=== PATIENT | male | born 1940 | race Caucasian/White ===

== ENCOUNTER 2019-07-04 14:24 | Outpatient (CLI) | payer OTHER, SELFPAY ==
--- NOTE | 2019-07-04 14:30 | USCV_ITS ---
Sanju Ball Age: 79 Gender: M : 1940 Exam Date: 07/04/2019 14:40 Ordering Phys: Art Mullen DO Technologist: Itzel Sahu Exam Location: [facility] – [place] Indication: BRUIT Risk Factors: Previous Vascular Surgery: Right Brachial BP: / Left Brachial BP: / Right Left Velocity (cm/s) Spectral Plaque Velocity (cm/s) Spectral Plaque Syst/Diast Broadening Syst/Diast Broadening 62.80/ 9.90 Prox CCA 47.00 / 5.80 52.80/ 8.50 Mid CCA 42.10 / 13.70 57.50/ 10.10 Distal CCA 38.70 / 7.10 29.60/ 10.40 Prox ICA 31.60 / 8.80 50.50/ 16.80 Mid ICA 35.10 / 12.90 60.90/ 21.50 Distal ICA 42.90 / 11.60 65.00 ECA 65.20 1.15 ICA/CCA 1.02 Antegrade Vertebral Antegrade 37.10/ 8.70 cm/s 43.10/ 8.40 cm/s Tri Subclavian Tri 41.20 50.10 FINDINGS Minimal atheroscleriotic change right internal carotid aretery. CONCLUSIONS Negative bilateral carotid arterial stenosis or occlusion. Dr. Oenyda Oliva MD (Electronically Signed) Final Date: 04 July 2019 15:35 S
== END 2019-07-04 14:25 | disposition home or self-care (01) ==
LOC: RAD 14:28
PROVIDERS: Family Provider Internal Medicine; PCP Emergency Medicine Emergency Medical Services; Visit Provider Emergency Medicine Emergency Medical Services
DX: R09.89 Other specified symptoms and signs involving the circulatory and respiratory systems (principal)
CPT/HCPCS: 93880

== ENCOUNTER 2019-12-21 07:28 | Outpatient (CLI) | payer OTHER, SELFPAY ==
--- NOTE | 2019-12-21 07:37 | XRR_ITS ---
PROCEDURE INFORMATION: Exam: XR Abdomen, 1 View Exam date and time: 12/21/2019 7:57 AM Age: 79 years old Clinical indication: Condition or disease; Kidney or ureter condition; Calculus (stone) in kidney; Patient HX: Follow up kidney stone TECHNIQUE: Imaging protocol: XR of the abdomen. Views: Frontal supine view of the abdomen. 1 View. COMPARISON: CR XR KUB [id number] 11/12/2018 7:37 AM FINDINGS: Gastrointestinal tract: bowel gas pattern is nonspecific. Air filled large bowel including distal rectal gas. Moderate amount stool throughout the large bowel. Intraperitoneal space: Calcification of approximately 13 mm within the right pelvis. Organs: Surgical clips are present in the region of the gallbladder fossa. High density focus of approximately 2.3 cm on the left likely renal calculi. Bones/joints: Unremarkable. XR/XR KUB [id number] IMPRESSION: 1. Bowel gas pattern is nonspecific. Air filled large bowel including distal rectal gas. 2. Moderate amount stool throughout the large bowel. 3. High density focus of approximately 2.3 cm on the left likely left renal calculi. Previously visualized. On prior CT midpole region left kidney. 4. Calcification of approximately 13 mm within the right pelvis. Previously noted. On CT, within the trigone of the right bladder
== END 2019-12-21 07:29 | disposition home or self-care (01) ==
LOC: RAD 07:29
PROVIDERS: PCP Emergency Medicine Emergency Medical Services; Visit Provider Urology
DX: N20.0 Calculus of kidney (principal); R97.20 Elevated prostate specific antigen [PSA]
CPT/HCPCS: 74018; 81001; 84153

== ENCOUNTER 2020-05-10 10:00 | Outpatient (CLI) | payer OTHER, MEDICARE, SELFPAY ==
--- NOTE | 2020-05-10 10:09 | XR_ITS ---
WS: [id number] XR chest 2V* [id number] REASON FOR EXAM: Shortness of breath FINDINGS: Most recent comparison film is 03/06/2017. Heart and mediastinum are within normal limits for age. There appears to be interstitial and patchy alveolar infiltrates in the right lower lung posteriorly the left costophrenic angle is obscured and there is faint lung opacity within the left costophrenic angle region. There is peribronchial thickening and several airway seen in association with right lower lung opacit y. XR/XR chest 2V* [id number] IMPRESSION: The chest x-ray suggests infiltrates in both lower lobes with possible pleural fluid on the left. There is no recent comparison. The lung bases were clear on previous CT examination of the abdomen and pelvis. Current findings could could represent acute/subacute pneumonitis.
== END 2020-05-10 10:01 | disposition home or self-care (01) ==
PROVIDERS: PCP Emergency Medicine Emergency Medical Services; Visit Provider Internal Medicine Critical Care Medicine
DX: R06.02 Shortness of breath (principal)
CPT/HCPCS: 71046